=== PATIENT | female | born 2005 | race Caucasian/White ===

== ENCOUNTER 2025-07-04 01:29 | Observation (INO) | payer OTHER, SELFPAY ==
[2025-07-04] VITALS (96 sets, daily range): BP systolic 92–121; BP diastolic 42–73; PULSE 75–123; RESP 18; TEMP 36.4–38.6; O2SAT 94–100; BMI 24.7
--- NOTE | ~2025-07-04 | XR_ITS ---
Examination: XR chest 1V portable Clinical History: SOB FEVER CHEST PAIN Comparison: None Technique: Portable AP Findings: Heart size normal. Lungs clear. No acute bony abnormality. IMPRESSION: 1. No acute cardiopulmonary findings given portable technique. Reviewed, dictated and finalized at location R.
--- NOTE | 2025-07-04 02:15 | ECG_ITS ---
Test Date: 2025-07-04 02:15:47 Measurements Intervals [place] Rate: 116 P: 9 NV: 142 QRS: 40 QRSD: 84 T: 1 QT: 307 QTc: 427 Interpretive Statements SINUS TACHYCARDIA ST & T-WAVE ABNORMALITY, CONSIDER ANTERIOR ISCHEMIA ABNORMAL ECG No previous ECG available for comparison Electronically Signed On 07-04-2025 13:00:36 CDT by Curt Lancaster M.D.
[2025-07-04] MEDS: LACTATED RINGERS 1,000 ML 125 ML IV CONT (02:43)
--- NOTE | 2025-07-04 03:59 | OBADM ---
This patient, Lara Gotti, admitted to the OB room [facility] Post [facility] for observation. Patient/family oriented to hospital policies and general routines including ID bracelet, bed and alarms, visiting hours, pain management, procedures, bathroom and other care routines, personal items, smoking policy, room service/diet, and visiting hours. Patient/Family are encouraged to report perceived risks to care and to ask questions if they do not understand what they are told or what they should do.
[2025-07-04 04:04] LABS: Alanine Aminotransferase 17 U/L (6-35); Albumin Level 3.3 g/dL (3.7-5.6); Alkaline Phosphatase 219 U/L (45-116); Anion Gap 8 mmol/L (4-12); Aspartate Amino Transferase 23 U/L (14-36); Bilirubin,Total 0.5 mg/dL (0.2-1.3); Blood Urea Nitrogen 3 mg/dL (8-21); Calcium 8.3 mg/dL (8.9-10.7); Carbon Dioxide 21 mmol/L (22-30); Chloride 102 mmol/L (98-107); Estimated Glomerular Filt Rate > 60; Glucose 95 mg/dL (65-110); Potassium 3.0 mmol/L (3.4-5.0); Sodium 131 mmol/L (134-143); Total Protein 7.0 g/dL (6.3-8.6)
[2025-07-04 04:07] LABS: Hematocrit 27.2 % (37.0-47.0); Hemoglobin 8.7 g/dL (12.0-15.0); Immature Granulocyte Percent A 1.0 % (0-0.5); Lymphocytes Absolute Auto 1.87 K/mm3 (0.9-3.2); Mean Corpuscular HGB Conc 32.0 g/dl (32-36); Mean Corpuscular Hemoglobin 25.2 pg (26-34); Mean Corpuscular Volume 78.8 fl (80-100); Nucleated Red Blood Cells Absolute Auto 0.000 K/mm3 (0.0-0.012); Nucleated Red Blood Cells Perc 0.0 % (0.0-0.2); Platelet Count Result 353 k/mm3 (150-375); Red Blood Count 3.45 M/mm3 (4.2-5.4); White Blood Count 17.6 K/mm3 (4.5-10.0)
[2025-07-04] MEDS: ACETAMINOPHEN 500 MG TABLET 1000 MG PO ×2 (05:20→11:14)
[2025-07-04 06:37] LABS: Influenza A QL RT-PCR Negative (Negative); Influenza B QL RT-PCR Negative (Negative); RSV RNA, RT-PCR Negative (Negative); SARS-CoV-2 RNA PCR Negative (Negative)
[2025-07-04] MEDS: POTASSIUM CHLORIDE INJ 40 MEQ in SODIUM CHLORIDE 0.9% IV 500 ML 130 MEQ IVPB (06:53)
[2025-07-04] MEDS: SODIUM CHLORIDE 0.9% IV 250 ML 50 ML (06:54)
--- NOTE | 2025-07-04 10:19 | P.HP_ITS ---
H&P: HPI History of Present Illness Date/Time: 07/04/25 10:19 Chief Complaint: Fever Narrative: 19-year-old primiparous female at 21 weeks gestation who presented with fever. Patient also reported some mild shortness of breath. She was evaluated. Chest x-ray and EKG were normal. Culprit was normal. She was found to be hypokalemic. She has been receiving supplemental IV potassium. Otherwise her labs are essentially normal. COVID testing was normal. We have been providing supportive care. She will be discharged home shortly after correction of her potassium. Review of Systems Review of Systems: All systems reviewed & are unremarkable except as noted in HPI and below Constitutional: Constitutional: Denies chills, Denies fatigue, Denies fever(s) and Denies weakness Eyes: Eyes: Denies blurry vision, Denies change in vision, Denies loss of peripheral vision, Denies loss of vision, Denies other visual disturbances and Denies eye pain ENT: Denies vertigo, Denies dizziness, Denies hearing loss, Denies mouth pain, Denies nasal obstruction, Denies neck mass and Denies neck pain Cardiovascular: Cardiovascular: Denies chest pain, Denies diaphoresis, Denies syncope, Denies leg edema and Denies dyspnea Respiratory: Respiratory: Denies chest congestion, Denies cough, Denies hemoptysis, Denies dyspnea and Denies wheezing Gastrointestinal: Gastrointestinal: Denies abdominal pain, Denies constipation, Denies diarrhea, Denies nausea and Denies vomiting Genitourinary: Genitourinary: Denies hematuria, Denies change in libido, Denies nocturia, Denies genital lesions, Denies flank pain and Denies urinary urgency Musculoskeletal: Musculoskeletal: Denies abnormal gait, Denies back pain, Denies myalgias, Denies arthralgias, Denies joint swelling, Denies muscle weakness and Denies neck pain Integumentary/Breasts: Skin/Breast: Denies swelling, Denies breast pain, Denies breast mass, Denies dry skin, Denies nipple discharge, Denies unusual bruising and Denies jaundice Neurologic: Denies Neuro-related abnormal movements, Denies Abnormal speech present, Denies abnormal gait, Denies behavioral changes, Denies confusion, Denies vertigo, Denies dizziness, Denies syncope, Denies loss of vision, Denies memory loss, Denies convulsions and Denies weakness Psychiatric: Psychiatric: Denies abnormal sleep pattern, Denies behavioral changes, Denies change in libido, Denies confusion, Denies depression, Denies anhedonia and Denies memory loss Endocrine: Endocrine: Reports no additional endocrine complaints, Denies change in libido and Denies fatigue Hematologic/Lymphatic: Hematologic/Lymphatic: Reports no additional hematologic/lymphatic complaints Allergic/Immunologic: Allergic/Immunologic: Reports no additional allergic/immunologic complaints and Denies wheezing PMFSH Social History Social History Lack of Transportation: No Lack of Food: Never True Current Housing: I Have Housing Concerned About Future Housing: No Difficulty Paying Gas/Electric Bills: No Difficulty Paying for Meds: No Currently Unemployed: No Education: High School Diploma/GED Difficulty w/ Childcare or Family Care: No Meds Home Medications and Allergies Home Medications ?Medication ?Instructions ?Recorded ?Confirmed ?Type metoclopramide HCl 10 mg tablet 10 mg PO QID PRN nause a and 07/04/25 07/04/25 History vomiting scopolamine base 1 mg over 3 days 1 patch transdermal Q3D PRN nausea 07/04/25 07/04/25 History transdermal patch and vomiting Allergies Allergy/AdvReac Type Severity Reaction Status Date / Time Penicillins Allergy Unknown Hives Verified 07/04/25 04:12 Vital Signs Vital Signs - 24 hr 07/04/25 03:46 07/04/25 03:48 07/04/25 03:53 Temperature Pulse Rate 108 H Respiratory Rate Blood Pressure 117/62 Pulse Oximetry 96 97 Oxygen Delivery 07/04/25 03:56 07/04/25 03:58 07/04/25 04:00 Temperature 101.4 F H Pulse Rate Respiratory Rate Blood Pressure Pulse Oximetry 96 Oxygen Delivery Room Air 07/04/25 04:01 07/04/25 04:03 07/04/25 04:08 Temperature Pulse Rate 122 H Respiratory Rate Blood Pressure 112/59 L Pulse Oximetry 97 97 Oxygen Delivery 07/04/25 04:13 07/04/25 04:16 07/04/25 04:18 Temperature Pulse Rate 121 H Respiratory Rate Blood Pressure 121/56 L Pulse Oximetry 97 98 Oxygen Delivery 07/04/25 04:23 07/04/25 04:28 07/04/25 04:31 Temperature Pulse Rate 113 H Respiratory Rate Blood Pressure 113/60 Pulse Oximetry 97 98 Oxygen Delivery 07/04/25 04:38 07/04/25 04:43 07/04/25 04:45 Temperature Pulse Rate 107 H Respiratory Rate Blood Pressure 115/66 Pulse Oximetry 97 97 Oxygen Delivery 07/04/25 04:48 07/04/25 04:53 07/04/25 04:58 Temperature Pulse Rate Respiratory Rate Blood Pressure Pulse Oximetry 97 97 97 Oxygen Delivery 07/04/25 05:01 07/04/25 05:03 07/04/25 05:08 Temperature Pulse Rate 110 H Respiratory Rate Blood Pressure 117/57 L Pulse Oximetry 98 97 Oxygen Delivery 07/04/25 05:13 07/04/25 05:16 07/04/25 05:18 Temperature Pulse Rate 108 H Respiratory Rate Blood Pressure 113/59 L Pulse Oximetry 97 97 Oxygen Delivery 07/04/25 05:20 07/04/25 05:23 07/04/25 05:24 Temperature 99.4 F 99.4 F Pulse Rate Respiratory Rate Blood Pressure Pulse Oximetry 97 Oxygen Delivery 07/04/25 05:28 07/04/25 05:30 07/04/25 05:33 Temperature Pulse Rate 113 H Respiratory Rate Blood Pressure 117/67 Pulse Oximetry 97 98 Oxygen Delivery 07/04/25 05:38 07/04/25 05:43 07/04/25 05:46 Temperature Pulse Rate 112 H Respiratory Rate Blood Pressure 97/44 L Pulse Oximetry 98 97 Oxygen Delivery 07/04/25 05:48 07/04/25 05:53 07/04/25 05:57 Temperature Pulse Rate Respiratory Rate Blood Pressure Pulse Oximetry 97 98 97 Oxygen Delivery 07/04/25 06:01 07/04/25 06:02 07/04/25 06:07 Temperature Pulse Rate 114 H Respiratory Rate Blood Pressure 92/42 L Pulse Oximetry 98 98 Oxygen Delivery 07/04/25 06:12 07/04/25 06:24 07/04/25 06:29 Temperature Pulse Rate Respiratory Rate Blood Pressure Pulse Oximetry 97 98 99 Oxygen Delivery 07/04/25 06:34 07/04/25 06:39 07/04/25 06:44 Temperature Pulse Rate Respiratory Rate Blood Pressure Pulse Oximetry 98 98 99 Oxygen Delivery 07/04/25 06:49 07/04/25 06:51 07/04/25 06:56 Temperature Pulse Rate 88 Respiratory Rate Blood Pressure 106/60 Pulse Oximetry 99 97 98 Oxygen Delivery 07/04/25 07:01 07/04/25 07:06 07/04/25 07:11 Temperature Pulse Rate Respiratory Rate Blood Pressure Pulse Oximetry 98 98 97 Oxygen Delivery 07/04/25 07:16 07/04/25 07:21 07/04/25 07:26 Temperature Pulse Rate Respiratory Rate Blood Pressure Pulse Oximetry 98 98 98 Oxygen Delivery 07/04/25 07:31 07/04/25 07:36 07/04/25 07:37 Temperature Pulse Rate Respiratory Rate Blood Pressure Pulse Oximetry 98 98 99 Oxygen Delivery 07/04/25 07:42 07/04/25 07:47 07/04/25 07:52 Temperature Pulse Rate Respiratory Rate Blood Pressure Pulse Oximetry 98 98 98 Oxygen Delivery 07/04/25 07:57 07/04/25 08:00 07/04/25 08:02 Temperature 97.6 F Pulse Rate Respiratory Rate 18 Blood Pressure Pulse Oximetry 99 98 Oxygen Delivery 07/04/25 08:07 07/04/25 08:12 07/04/25 08:17 Temperature Pulse Rate Respiratory Rate Blood Pressure Pulse Oximetry 98 98 98 Oxygen Delivery 07/04/25 08:18 07/04/25 08:31 07/04/25 08:36 Temperature Pulse Rate Respiratory Rate Blood Pressure Pulse Oximetry 94 98 97 Oxygen Delivery 07/04/25 08:41 07/04/25 08:46 07/04/25 08:51 Temperature Pulse Rate Respiratory Rate Blood Pressure Pulse Oximetry 97 98 96 Oxygen Delivery 07/04/25 08:56 07/04/25 09:01 07/04/25 09:06 Temperature Pulse Rate Respiratory Rate Blood Pressure Pulse Oximetry 98 98 98 Oxygen Delivery 07/04/25 09:11 07/04/25 09:27 07/04/25 09:32 Temperature Pulse Rate 85 Respiratory Rate Blood Pressure 95/53 L Pulse Oximetry 100 96 95 Oxygen Delivery 07/04/25 09:37 07/04/25 09:42 07/04/25 09:47 Temperature Pulse Rate Respiratory Rate Blood Pressure Pulse Oximetry 96 97 96 Oxygen Delivery 07/04/25 09:52 07/04/25 09:57 07/04/25 10:02 Temperature Pulse Rate Respiratory Rate Blood Pressure Pulse Oximetry 96 97 98 Oxygen Delivery 07/04/25 10:07 07/04/25 10:12 07/04/25 10:17 Temperature Pulse Rate Respiratory Rate Blood Pressure Pulse Oximetry 96 97 97 Oxygen Delivery Exam Const: General: cooperative, healthy appearing, comfortable and no acute distress Orientation/consciousness: oriented to person, oriented to place and oriented to time HENMT: Head: normal to inspection Ears: external ears normal Face/Nose/Sinus: Normal external nose present and normal facial exam Face and sinus: normal facial exam Eyes: General: appearance normal, both eyes and all related structures Neck: Neck: normal visual inspection, trachea midline and supple Resp: Auscultation: clear to auscultation bilaterally, no crackles, no rales, no rhonchi and no wheezes Cardio: Rate: regular rate Rhythm: regular rhythm Heart sounds: no click, no murmurs and no rubs GI: GI Palp: No abdominal tenderness, No Soft to palpation, No Tenderness to palpation present (GI) and No Palpable mass present Auscultation: normal bowel sounds Skin: General skin exam: normal color and no rashes or lesions noted Neuro: General: oriented to person, oriented to place and oriented to time Extrem: General: normal to inspection, no joint enlargement, no clubbing, cyanosis or edema, no pedal edema and no calf tenderness Psych: Appearance: grossly normal Mental Status: mental status grossly normal Speech and movement: Normal speech and movement present H&P: Results Labs Labs: Short CBC 07/04/25 Range/Units 02:25 WBC 17.6 H (4.5-10.0) K/mm3 Hgb 8.7 L (12.0-15.0) g/dL Hct 27.2 L (37.0-47.0) % Plt Count 353 (150-375) k/mm3 [facility] 07/04/25 02:25 Sodium 131 L Potassium 3.0 L Chloride 102 Carbon Dioxide 21 L BUN 3 L Creatinine 0.54 L Glucose 95 Calcium 8.3 L Liver Function 07/04/25 Range/Units 02:25 Total Bilirubin 0.5 (0.2-1.3) mg/dL AST 23 (14-36) U/L ALT 17 (6-35) U/L Alkaline Phosphatase 219 H (45-116) U/L Albumin 3.3 L (3.7-5.6) g/dL Assessment and Plan Assessment and plan (1) Fever: Code(s): R50.9 - Fever, unspecified Status: Acute Plan 19-year-old primiparous female at 21 weeks gestation who presented with fever. Patient also reported some mild shortness of breath. She was evaluated. Chest x-ray and EKG were normal. Culprit was normal. She was found to be hypokalemic. She has been receiving supplemental IV potassium. Otherwise her labs are essentially normal. COVID testing was normal. We have been providing supportive care. She will be discharged home shortly after correction of her potassiu
[2025-07-04] MEDS: IRON SUCROSE COMPLEX 200 MG in SODIUM CHLORIDE 0.9% IV 100 ML 220 MG IVPB (11:34)
[2025-07-04 13:15] LABS: Add Urine Microscopic? YES; Appearance Urine Clear (Clear); Glucose Urine UA Negative (Negative); Leukocyte Esterase Ur 2+ LEU/UL (Negative); Nitrate Urine Negative (Negative); Non Pathogenic Casts 0-2; Specific Grav Ur 1.009 (1.001-1.035)
--- NOTE | 2025-07-08 09:45 | P.PNOB_ITS ---
OB - Triage/Final Diagnosis Visit Information Comments/Additional reasons for admission: I have assessed the risk for this patient, Lara Gotti, and determined that she would benefit from observation care. Evaluation Laboratory results: Laboratory Tests 07/04/25 07/04/25 07/04/25 02:25 05:53 13:03 WBC 17.6 H RBC 3.45 L Hgb 8.7 L Hct 27.2 L MCV 78.8 L MCH 25.2 L MCHC 32.0 RDW 15.1 H Plt Count 353 MPV 10.3 Immature Gran % (Auto) 1.0 H Neut % (Auto) 76.0 H Lymph % (Auto) 10.6 L [place] % (Auto) 11.9 H Eos % (Auto) 0.2 Baso % (Auto) 0.3 Lymph # (Auto) 1.87 [place] # (Auto) 2.1 H Eos # (Auto) 0.0 Baso # (Auto) 0.1 Abs Immat Gran (auto) 0.18 H Absolute Neuts (auto) 13.4 H Absolute Nucleated RBC 0.000 Nucleated RBC % 0.0 Sodium 131 L Potassium 3.0 L Chloride 102 Carbon Dioxide 21 L Anion Gap 8 BUN 3 L Creatinine 0.54 L Estim Creat Clear Calc Not Reportable Estimated GFR > 60 Glucose 95 Calcium 8.3 L Total Bilirubin 0.5 AST 23 ALT 17 Alkaline Phosphatase 219 H Total Protein 7.0 Albumin 3.3 L Urine Color Yellow Urine Appearance Clear Urine pH 6.5 Ur Specific [place] 1.009 Urine Protein Negative Urine Glucose (UA) Negative Urine Ketones 3+ H Ur Blood (Man) Negative Urine Nitrate Negative Urine Bilirubin Negative Urine Urobilinogen 1.0 Leukocyte Esterase Rfl 2+ H Urine RBC 0-2 Urine WBC 11-20 H Ur Squamous Epith Cells Few Urine Bacteria Rare Urine Casts 0-2 Influenza A (RT-PCR) Negative Influenza B (RT-PCR) Negative RSV (RT-PCR) Negative SARS-CoV-2 RNA (RT-PCR) Negative Final Diagnosis (1) Fever: Code(s): R50.9 - Fever, unspecified Status: Acute
== END 2025-07-04 13:50 | disposition home or self-care (01) ==
PROVIDERS: Admitting Provider Obstetrics & Gynecology; Visit Provider Obstetrics & Gynecology
DX: O99.012 Anemia complicating pregnancy, second trimester (principal); D64.9 Anemia, unspecified; O26.892 Other specified pregnancy related conditions, second trimester; Z3A.21 21 weeks gestation of pregnancy; R50.9 Fever, unspecified; O99.891 Other specified diseases and conditions complicating pregnancy; R00.0 Tachycardia, unspecified; Z20.822 Contact with and (suspected) exposure to COVID-19
CPT/HCPCS: 36415; 71045; 80053; 81001; 85025; 87040; 87086; 87637; 93005; 96374; 96375; A9270; G0378; G0379; J1756; J3480; J7040; J7050; J7120